=== PATIENT | male | born 1985 | race Caucasian/White ===

== ENCOUNTER 2024-04-24 08:20 | Emergency (ER) | payer OTHER ==
[~2024-04-24] VITALS: Ht 170.2 cm; Wt 71.7 kg
[2024-04-24] MEDS ORDERED: PIPERACILLIN/TAZOBACTAM SODIUM 3.375 GM VIAL IV ONE (09:00)
[2024-04-24] MEDS ORDERED: 0.9 % SODIUM CHLORIDE 1,000 ML IV ONE (09:00)
[2024-04-24] MEDS ORDERED: ACETAMINOPHEN 500 MG GEL..CAP PO ONE (09:15)
[2024-04-24] MEDS ORDERED: KETOROLAC TROMETHAMINE 15 MG VIAL IV ONE (09:15)
[2024-04-24 09:43] LABS: HEMOGLOBIN 14.9 g/dL (13-16.00); MEAN CELL VOLUME 89.5 fL (80.0-100.00); MEAN CORPUSCULAR HEMOGLOBIN 30.9 pg (27.00-32.0); MEAN CORPUSCULAR HGB CONC 34.5 g/dl (32.0-36.0); PLATELET COUNT 221 K/uL (150-450); RED BLOOD COUNT 4.81 M/uL (4.00-6.00); RED CELL DISTRIBUTION WIDTH 13.9 % (11.5-14.5)
[2024-04-24 09:46] LABS: CALCIUM 8.8 mg/dL (8.5-10.1); CREATININE SERUM 0.9 mg/dL (0.70-1.30); GFR 94.95; POTASSIUM 3.59 mEq/L (3.5-5.1)
[2024-04-24 10:12] LABS: C-REACTIVE PROTEIN 3.72 MG/DL (0.00-0.29)
[2024-04-24 10:24] LABS: ERYTHROCYTE SEDIMENTATION RATE 7 mm/hr
== END 2024-04-24 12:28 | disposition home or self-care (01) ==
LOC: ER 08:22
PROVIDERS: General Practice
DX: L03.115 Cellulitis of right lower limb (principal); L73.8 Other specified follicular disorders